=== PATIENT | male | born 1970 | race Caucasian/White ===

== ENCOUNTER 2024-10-05 22:29 | Emergency (ER) | payer SELFPAY ==
[2024-10-05 23:29] VITALS: BP 181/98; PULSE 75; RESP 20; TEMP 36.7; O2SAT 95
[2024-10-06 00:44] VITALS: RESP 16
--- NOTE | 2024-10-06 05:25 | EDNOTE_ITS ---
<Statement entered by Merna Conroy MD - 10/06/24 05:50> As co-signing physician, I was present and available for consult prn. I concur with the plan and care as documented by the midlevel provider. ED Ear RME/HPI General Chief complaint: Ear Stated complaint: FB IN LEFT EAR Time Seen by Provider: 10/05/24 23:36 Arrival date/time: 10/05/24 22:29 54M with history of DM and HTN presents to ED with insect in L ear. Limitations: no limitations Related Data Home Medications ?Medication ?Instructions ?Recorded ?Confirmed glyburide 5 mg tablet 4 mg PO QDAY 05/29/17 metformin 1,000 mg tablet 1,000 mg PO BID 05/29/17 Previous Rx's ?Medication ?Instructions ?Recorded indomethacin 50 mg capsule 50 mg PO Q8HR PRN pain #20 caps 05/29/17 methylprednisolone 4 mg tablets in See Rx Instructions PO PER PKG DIR 05/29/17 a dose pack (Medrol (Jeronimo)) #21 tabs tramadol 50 mg tablet 50 mg PO Q6H PRN pain #14 ta bs 05/29/17 hydrochlorothiazide 25 mg tablet 25 mg PO QDAY #30 tab s 01/07/18 [id number] 3.5 4 drp otic (ear) BID 10 days #10 mL 10/06/24 mg-10,000 unit/mL-1 % ear drops,susp Allergies Allergy/AdvReac Type Severity Reaction Status Date / Time No Known Allergies Allergy Verified 10/05/24 22:30 Review of Systems Review of Systems Systems Reviewed: All systems reviewed, normal except as documented Constitutional Constitutional: Reports system reviewed and no additional complaints, except as documented, Denies fever(s) and Denies headache(s) ENT Ears, Nose, Mouth, and Throat: Denies disequilibrium and Denies headache(s) Cardiovascular Cardiovascular: Reports system reviewed and no additional complaints, except as documented, Denies chest pain and Denies dyspnea Respiratory Respiratory: Reports system reviewed and no additional complaints, except as documented, Denies cough and Denies dyspnea Gastrointestinal Gastrointestinal: Reports system reviewed and no additional complaints, except as documented, Denies abdominal pain, Denies nausea and Denies vomiting Neurologic Neurologic: Reports system reviewed and no additional complaints, except as documented, Denies confusion, Denies disequilibrium and Denies headache(s) Psychiatric Psychiatric: Denies confusion Past Medical History Past Medical History CARDIAC: Positive Hypertension; Negative Congestive Heart Failure RESPIRATORY: Negative Chronic Obstructive Pulmonary Disease (COPD) GENITOURINARY: Positive Kidney Stones; Negative Renal Disease MUSCULOSKELETAL: Positive Gout ENDOCRINE: Positive Diabetes Mellitus Type 2; Negative Diabetes Mellitus Type 1 Social History SMOKING STATUS: Never smoker ED Exam General Limitations: Present no limitations General appearance: Present alert and in no apparent distress Head Head exam: Present atraumatic Eye Eye exam: Present normal appearance, PERRL and EOMI ENT ENT exam: Present mucous membranes moist Expanded ENT Exam TM/Canal exam: Left TM: foreign body Neck Neck exam: Present normal inspection, full ROM and trachea midline Chest Chest inspection: Present normal inspection and symmetric chest wall rise Respiratory Respiratory exam: Present normal lung sounds bilaterally Cardiovascular Cardiovascular exam: Present regular rate, normal rhythm and normal heart sounds Abdominal Exam Abdominal exam: Present soft and normal bowel sounds Extremities Exam Extremities exam: Present normal inspection and full ROM Back Exam Back exam: Present normal inspection and full ROM Neurological Exam Neurological exam: Present alert, oriented X3 and CN II-XII intact Psychiatric Psychiatric exam: Present normal affect and normal mood Skin Skin exam: Present warm, dry, intact and normal color Course Quality Measures none Orders Category Date Time Status ED Ear Irrigation X1 Care 10/06/24 00:35 Completed Vital Signs Vital signs: Vital Signs Temperature 98.0 F 10/05/24 23:29 Pulse Rate 75 10/05/24 23:29 Respiratory Rate 20 10/05/24 23:29 Blood Pressure 181/98 H 10/05/24 23:29 Pulse Oximetry (%) 95 10/05/24 23:29 Oxygen Delivery Method Room Air 10/05/24 23:29 O2 at 95% on RA and WNLs Ear MDM Narrative MDM Narrative:: 54M with history of DM and HTN presents to ED with insect in L ear. Physical exam reveals insect in L ear canal. Patient is afebrile, calm, and alert. Insect killed with lidocaine. Despite multiple attempts with irrigation and alligator forceps, removal was unsuccessful. Given outpatient ENT referral and ABX prophylaxis. Patient data External records reviewed:: [facility] previous records Clinical information provided by:: patient Social determinants that could affect healthcare access:: none Patient has the following chronic illnesses:: DM and HTN How is presenting disease/condition affected by chronic disease/condition?: uneffected by Evaluation data The following diagnostics were reviewed and interpreted by me:: other (specify) (none) Lab and/or radiology exams considered but not ordered:: not ordered Interpretation Summary: n/a Medications / Prescriptions Medications or Prescriptions considered but not ordered:: not ordered Medication administrations:: n/a Consultations Consultation(s) initiated? (list below): No Diagnosis Ear Differential Diagnosis: otitis externa, otitis media, foreign body in ear, ruptured TM and cerumen impaction Most likely diagnosis given after review of the tests above:: FB ear Admission Indicated Admission indicated?: not indicated Admission Request Was there a request for admission?: No Disposition Plan Disposition Plan: Discharge Discharge Attestation Discharge Attestation: The patient and all family members were given an opportunity to ask questions and understood the discharge instructions. Discharge instructions specifically effects, indications for sooner follow up or return to the emergency department, and the expected course of current diagnosis. Patient condition: Stable Discharge Plan Plan Patient Disposition: HOME (Self Care) Discharge Disposition comment: Stable Prescriptions/Referrals Prescriptions/Med Rec: New [id number] 3.5-10,000-1 mg/mL-unit/mL-% drops,suspension 4 drp otic (ear) BID 10 Days Qty: 10 0RF No Action tramadol 50 mg tablet 50 mg PO Q6H PRN (Reason: pain) Qty: 14 0RF indomethacin 50 mg capsule 50 mg PO Q8HR PRN (Reason: pain) Qty: 20 0RF Rx Instructions: 1 tab PO Q8 hours prn pain x 3-5 days; reduce use once pain is under control. administer with food or milk methylprednisolone [Medrol (Jeronimo)] 4 mg tablets,dose pack See Rx Instructions PO PER PKG DIR Qty: 21 0RF Dose Instruction: PO PER PKG DIR Rx Instructions: PO PER PKG DIR glyburide 5 mg tablet 4 mg PO QDAY metformin 1,000 mg tablet 1,000 mg PO BID hydrochlorothiazide 25 mg tablet 25 mg PO QDAY Qty: 30 0RF Referrals: Nic Gomez DO [Physician] - In 1 week (Call in AM) Problem List Clinical Impression: Foreign body in ear Patient/Caregiver Discharge Instructions Education Materials: ED EAR CANAL Foreign Body Additional Instructions: Please follow-up with PCP within 24-48 hours and return immediately if symptoms worsen. Call Dr. Gomez's office in AM. Print Language: Greenlandic Stand Alone Forms: Patient Portal Info Letter PA/PONY WORKER Supervising Physician CAROLINA/JATIN Supervising Physician: Dr. Conroy
== END 2024-10-06 00:45 | disposition home or self-care (01) ==
LOC: SERX 10-06 00:46
PROVIDERS: Emergency Provider Emergency Medicine; PCP Family Medicine
DX: T16.2XXA Foreign body in left ear, initial encounter (principal); W44.F4XA Insect entering into or through a natural orifice, initial encounter
CPT/HCPCS: 99283